=== PATIENT | male | born 1945 | race American Indian/Alaskan Native ===

== ENCOUNTER 2018-03-25 12:36 | Outpatient (CLI) | payer OTHER ==
--- NOTE | 2018-03-25 15:10 | Magnetic Resonance Report ---
MRI BRAIN WITHOUT CONTRAST: 03/25/18 12:36:00 CLINICAL: Cerebrovascular disease. TECHNIQUE: Axial diffusion, T1, T2, gradient echo T2*, coronal and axial FLAIR and sagittal T1 sequences on a 1.5 Radha magnet. FINDINGS: Normal ventricles and sulci. No restricted diffusion. Focal periventricular white matter hyperintensities of the left frontal lobe and left occipital lobe on FLAIR and T2. The occipital lobe hyperdensity is larger and measures 1.5 cm. No mass or mass effect. No hemorrhage, edema or extra-axial collection. Normal pituitary and optic chiasm. The brainstem and cerebellum are normal. Intact vascular flow voids. Mild bilateral ethmoid sinusitis. A mucous retention cyst of the left maxillary sinus measures 2.3 cm. The orbits, and soft tissues are normal. Normal calvarium and skull base. IMPRESSION: 1. No evidence of acute infarct or hemorrhage. 2. Mild nonspecific left frontal lobe and left occipital lobe white matter hyperintensities on FLAIR and T2. These are most likely evidence of chronic white matter microangiopathy.
--- NOTE | 2018-03-25 15:13 | Magnetic Resonance Report ---
MRA HEAD WITHOUT CONTRAST: 03/25/18 12:36:00 CLINICAL: Right sided weakness. TECHNIQUE: Axial 3-D [id number] MR angiography of the [place] with review of axial source images. FINDINGS: Intact [place] with no aneurysm, stenosis or occlusion. Anterior and posterior indicating arteries are well demonstrated. Symmetric blood flow in the anterior, middle and posterior cerebral arteries. Normal basilar and vertebral arteries. The left vertebral artery is dominant. IMPRESSION: Normal study.
== END 2018-03-25 12:37 | disposition home or self-care (01) ==
LOC: MRI 12:36
PROVIDERS: ATTEND Internal Medicine
DX: I63.9 Cerebral infarction, unspecified (principal); R53.1 Weakness; G89.29 Other chronic pain; M19.90 Unspecified osteoarthritis, unspecified site; I10 Essential (primary) hypertension; J32.2 Chronic ethmoidal sinusitis; J34.1 Cyst and mucocele of nose and nasal sinus
CPT/HCPCS: 70544; 70551